=== PATIENT | female | born 2000 | race Caucasian/White ===

== ENCOUNTER 2020-08-16 08:53 | Outpatient (REF) | payer MEDICAID, SELFPAY ==
--- NOTE | ~2020-08-16 | CT_ITS ---
EXAMINATION: CT HEAD WITHOUT CONTRAST CLINICAL INFORMATION: Cystic lesion right frontoparietal lobe COMPARISON: CT brain 07/04/2019 TECHNIQUE: Contiguous axial imaging was performed from the skull base to vertex without intravenous administration of contrast. This CT examination was performed using dose optimization techniques as appropriate, variously including the following: *Automated exposure control *Adjustment of mA and/or kV according to patient size (this includes techniques or standardized protocols for targeted exams where dose is matched to indication/reason for exam; i.e. extremities or head) *Use of iterative reconstruction technique DLP: 769 mGy-cm FINDINGS: Again visualized is a right extra-axial frontal convexity CSF fluid collection, findings suggestive of extra-axial arachnoid cyst. It is stable compared to previous exam 07/04/2019 there is no mass or mass effect seen. No acute intra-axial or extra-axial bleed, acute infarction or midline shift. The lateral ventricles are symmetrical in size and configuration without enlargement. The [place] to white matter differentiation is maintained normal. Bone windows reveal no calvarial abnormality. Bilateral paranasal sinuses and mastoid air cells are well-aerated. The osseous structures and soft tissues are normal. CT/CT head/brain wo con IMPRESSION: No acute intracranial process seen. Right frontal extra-axial arachnoid cyst is stable.
== END 2020-08-16 08:54 | disposition home or self-care (01) ==
LOC: HO.CT 08:53
PROVIDERS: Visit Provider Neurological Surgery
DX: G31.89 Other specified degenerative diseases of nervous system (principal)
CPT/HCPCS: 70450

== ENCOUNTER 2020-09-10 13:03 | Outpatient (REF) | payer MEDICAID, SELFPAY ==
--- NOTE | ~2020-09-10 | MR_ITS ---
EXAMINATION: MRI OF THE BRAIN WITHOUT CONTRAST CLINICAL INFORMATION: Optic neuritis. COMPARISON: CT scan of the head 08/16/2020. MRI scan of the brain and orbits 01/10/2019.. TECHNIQUE: MRI of the brain was obtained using routine sequences without contrast. FINDINGS: No diffusion abnormalities are identified to suggest an acute or subacute infarct. No mass effect or midline shift is seen. The ventricles are normal in size. The study redemonstrates the arachnoid cyst in the right frontal region, which measures 6.6 x 2.7 cm axially. Allowing for differences in slice selection, the cyst is stable in size. There is some mass effect on the adjacent brain parenchyma, but the parenchyma has normal signal. No new extra-axial fluid collections are demonstrated. Brain parenchymal signal is normal. The brainstem and cerebellum are normal. No pathologic magnetic susceptibility artifact is identified on the gradient refocused acquisition. The craniovertebral junction, marrow signal, and midline structures are normal. The major intracranial flow-voids at the level of the [place] are preserved. The dural venous sinus flow-voids are maintained. The mastoid air cells and paranasal sinuses are well-aerated. MR/MR head/brain wo con IMPRESSION: 1. There are no acute bleeds or infarcts. No masses are demonstrated. Brain parenchymal signal appears normal. 2. The study redemonstrates an arachnoid cyst over the right frontal lobe, which appears stable in size.
== END 2020-09-10 13:04 | disposition home or self-care (01) ==
LOC: HO.MRI 13:03
PROVIDERS: PCP Family Medicine; Visit Provider Psychiatry & Neurology Neurology
DX: H46.9 Unspecified optic neuritis (principal)
CPT/HCPCS: 70551

== ENCOUNTER 2020-10-18 15:55 | Emergency (ER) | payer SELFPAY ==
[2020-10-18 16:03] VITALS: BP 114/84; PULSE 87; RESP 16; TEMP 36.9; O2SAT 99; BMI 28.3
--- NOTE | 2020-10-18 17:55 | ED_ITS ---
HPI - General Adult General Chief complaint: General Medical <JAIME Partida - Last Filed: 10/18/20 19:18> Stated complaint: vag infection <JAIME Partida - Last Filed: 10/18/20 19:18> Time Seen by Provider: 10/18/20 17:55 <JAIME Partida - Last Filed: 10/18/20 19:18> Source: patient <JAIME Partida - Last Filed: 10/18/20 19:18> Mode of arrival: ambulatory <JAIME Partida - Last Filed: 10/18/20 19:18> Limitations: no limitations <JAIME Paritda - Last Filed: 10/18/20 19:18> History of Present Illness HPI narrative: Patient is here today complaining of vaginal discharge, burning and itching. Patient reports that she had unprotected sex 1 week ago. Patient reports that it was with the same partner. Patient denies previous pregnancies. Patient denies abdominal pain, discomfort, pelvic pain. Last menstrual period 2 weeks ago. <JAIME Partida - Last Filed: 10/18/20 19:18> Related Data Allergies/adverse reactions: Allergies Allergy/AdvReac Type Severity Reaction Status Date / Time No Known Allergies Allergy Unverified 11/10/19 17:25 <JAIME Partida - Last Filed: 10/18/20 19:18> Review of Systems Review of Systems: Constitutional : No Weight loss, No Fever, No Chills, No Night Sweats, No Fatigue, No Malaise ENT/Mouth : No Hearing loss, No Ear Pain, No Nasal Congestion, No Sinus Pain, No Hoarseness, No sore throat, No Rhinorrhea, No Swallowing Difficulty Eyes: No Eye Pain, No Swelling, No Redness, No Foreign Body, No Discharge, No Vision Changes Cardiovascular : No Chest Pain, No SOB, No Dyspnea on Exertion, No Orthopnea, No Edema, No Palpitations Respiratory : No Cough, No Sputum, No Wheezing, No Smoke Exposure, No Dyspnea Gastrointestinal : No Nausea, No Vomiting, No Diarrhea, No Constipation, No abdominal Pain, No Hematochezia, No Melena Genitourinary : no irregular bleeding, No Dysuria, No Urinary Frequency, No Hematuria, No Urinary Incontinence, No Urgency, No Flank Pain, No Urinary Flow Changes, No Hesitancy, vaginal burning and discharge Musculoskeletal : No joint pain, No Myalgias, No Joint Swelling Skin : No Skin Lesions, No rash Neuro : No Weakness, No Numbness, No Paresthesias, No Loss of Consciousness, No Dizziness, No Headache Psych : No Anxiety/Panic, No Depression, No SI/HI/AH/VH, No Social Issues, Heme/Lymph: No Bruising, No Bleeding,No Lymphadenopathy Endocrine : No Polyuria, No Polydipsia, No Temperature Intolerance <PALOMA PartidaP-BC - Last Filed: 10/18/20 19:18> Yes all other systems are reviewed and are negative <PALOMA PartidaP-BC - Last Filed: 10/18/20 19:18> PMFSH Social History Social History: Social History Advance Directives: No Advance Directives Information Provided: No <PALOMA PartidaP-BC - Last Filed: 10/18/20 19:18> Physical Exam Vital Signs: Vital Signs: Last Vital Signs Temp 98.5 F 10/18/20 16:03 Pulse 87 10/18/20 16:03 Resp 16 10/18/20 16:03 BP 114/84 10/18/20 16:03 Pulse Ox 99 10/18/20 16:03 Body Mass Index 28.3 <PALOMA PartidaP-BC - Last Filed: 10/18/20 19:18> Vital Signs: Last Vital Signs Temp 98.5 F 10/18/20 16:03 Pulse 87 10/18/20 16:03 Resp 16 10/18/20 16:03 BP 114/84 10/18/20 16:03 Pulse Ox 99 10/18/20 16:03 Body Mass Index 28.3 <Chyna Garcia PA-C - Last Filed: 10/18/20 19:40> Const: General: healthy appearing, no acute distress and well developed <BALAJI Partida-BC - Last Filed: 10/18/20 19:18> Nutritional Appearance: well nourished <PALOMA PartidaP-BC - Last Filed: 10/18/20 19:18> Orientation/consciousness: patient oriented x3 <PALOMA PartidaP-BC - Last Filed: 10/18/20 19:18> Neck: Neck: Yes normal visual inspection, Yes full ROM and Yes trachea midline <PALOMA PartidaP-BC - Last Filed: 10/18/20 19:18> Thyroid: Thyroid normal <PALOMA PartidaP-BC - Last Filed: 10/18/20 19:18> Resp: Auscultation: clear to auscultation bilaterally <PALOMA PartidaP-BC - Last Filed: 10/18/20 19:18> Cardio: Rate: regular rate <PALOMA PartidaP-BC - Last Filed: 10/18/20 19:18> Rhythm: regular rhythm <PALOMA PartidaP-BC - Last Filed: 10/18/20 19:18> GI: Inspection: Yes normal to inspection and No distended <PALOMA PartidaP- - Last Filed: 10/18/20 19:18> Palpation (GI): Soft to palpation, not firm, nontender and No hepatosplenomegaly present <PALOMA PartidaP-BC - Last Filed: 10/18/20 19:18> Auscultation: normal bowel sounds <PALOMA PartidaP-BC - Last Filed: 10/18/20 19:18> : External Female Exam: normal external appearance <PALOMA PartidaP- BC - Last Filed: 10/18/20 19:18> Speculum Exam - Vagina: normal appearance of the vagina <PALOMA PartidaP-BC - Last Filed: 10/18/20 19:18> Speculum Exam - Cervix: normal appearance of the cervix <PALOMA PartidaP-BC - Last Filed: 10/18/20 19:18> Bimanual exam- vagina & uterus: normal bimanual exam <BALAJI Partida-BC - Last Filed: 10/18/20 19:18> Skin: General skin exam: elasticity normal, turgor normal and dry skin <Kathya Aponte [facility]- - Last Filed: 10/18/20 19:18> Neuro: General: patient oriented x3 <Kathya Aponte TRANSMISSIONS SYSTEMS OPERATOR- - Last Filed: 10/18/20 19:18> Course Course Course Narrative: 19-year-old female here today for complaining of vaginal pain, itching and drainage. Patient reports that she had unprotected sex last week. It was with the same partner. Patient denies any previous pregnancies. Last menstrual period 2 weeks ago. Vaginal exam normal, normal cervix, no motion tenderness, denies pelvic floor pain. Yellow discharge. Trichomonas, chlamydia and gonorrhea samples will be sent. Urine for micro and sent. Will medicate patient with Flagyl and Cipro. If urine is negative for we will order doxycycline. Discussed with patient the importance of avoiding sexual contact. <Kathya Pattersonchiquita [facility]- - Last Filed: 10/18/20 19:18> Reevaluation(s) Reevaluation #1: Awaiting urine test to treat her for chlamydia. Report given to Marisela EDMONDS <Kathya Pattersonchiquita [facility]- - Last Filed: 10/18/20 19:18> Reevaluation #2: Urine test negative, will prescribe doxycycline for STI prophylaxis. <Chyna Garcia PA-C - Last Filed: 10/18/20 19:40> Time: 19:40 <Chyna Garcia PA-C - Last Filed: 10/18/20 19:40> Medical Decision Making Lab Data Labs: Lab Results 10/18/20 10/18/20 Range/Units 19:21 19:21 Urine Color YELLOW Urine Appearance CLEAR Urine pH 6.5 (5.0-8.0) Ur Specific [place] 1.020 (1.005-1.025) Urine Protein NEG (NEG-TRACE) MG/DL Urine Glucose (UA) NEG (NEG) MG/DL Urine Ketones NEG (NEG) MG/DL Urine Blood TRACE (NEG) Urine Nitrite NEG (NEG) Ur Leukocyte Esterase NEG (NEG) Urine RBC 1-4 (0) /HPF Urine WBC 0-2 (0-4) /HPF Ur Squamous Epith Cells 2+ /LPF Urine Bacteria NONE /LPF Urine Test NEGATIVE (NEGATIVE) <Kathya Aponte TRANSMISSIONS SYSTEMS OPERATOR-BC - Last Filed: 10/18/20 19:18> Lab Results 10/18/20 10/18/20 Range/Units 19:21 19:21 Urine Color YELLOW Urine Appearance CLEAR Urine pH 6.5 (5.0-8.0) Ur Specific [place] 1.020 (1.005-1.025) Urine Protein NEG (NEG-TRACE) MG/DL Urine Glucose (UA) NEG (NEG) MG/DL Urine Ketones NEG (NEG) MG/DL Urine Blood TRACE (NEG) Urine Nitrite NEG (NEG) Ur Leukocyte Esterase NEG (NEG) Urine RBC 1-4 (0) /HPF Urine WBC 0-2 (0-4) /HPF Ur Squamous Epith Cells 2+ /LPF Urine Bacteria NONE /LPF Urine Test NEGATIVE (NEGATIVE) <Chyna Garcia PA-C - Last Filed: 10/18/20 19:40> Discharge Plan Discharge Clinical Impression: STI (sexually transmitted infection) <Kathya Aponte TRANSMISSIONS SYSTEMS OPERATOR-BC - Last Filed: 10/18/20 19:18> Patient Disposition: Home, Self-Care <Kathya Aponte TRANSMISSIONS SYSTEMS OPERATOR-BC - Last Filed: 10/18/20 19:18> Instructions: Sexually Transmitted Diseases (ED), Safe Sex Practices for Adolescents ( ED) <Kathya Aponte TRANSMISSIONS SYSTEMS OPERATOR-BC - Last Filed: 10/18/20 19:18> Additional Instructions: You were seen here today for <Kathya Aponte TRANSMISSIONS SYSTEMS OPERATOR-BC - Last Filed: 10/18/20 19:18>
[2020-10-18 19:29] LABS: Glucose Urine UA NEG (NEG); Leukocyte Esterase Urine NEG (NEG); Nitrite Urine NEG (NEG); PH 6.5 (5.0-8.0); UACC Culture Trigger NO; Urine Blood TRACE (NEG); Urine Ketones NEG (NEG); Urine Protein NEG (NEG-TRACE)
[2020-10-18 19:30] LABS: UPreg QC Valid YES; Urine Pregnancy NEGATIVE (NEGATIVE)
[2020-10-18 19:31] LABS: Appearance Urine CLEAR; Color Urine YELLOW
[2020-10-18 19:34] LABS: Squamous Epithelial Cell Urine 2+ /LPF; WBC Urine 0-2 /HPF (0-4)
[2020-10-18] MEDS: metroNIDAZOLE 500 MG TABLET 1000 MG PO (19:37)
[2020-10-18] MEDS: cefTRIAXone sodium 500 MG, Lidocaine HCl 1 % MPF 1 ML IM (19:37)
[2020-10-19 04:23] LABS: CT PCR NOT DETECTED (Not Detect.); NG PCR NOT DETECTED (Not Detect.)
== END 2020-10-18 19:50 | disposition home or self-care (01) ==
PROVIDERS: Nurse Practitioner Family; Emergency Provider Emergency Medicine; PCP Family Medicine
DX: N89.8 Other specified noninflammatory disorders of vagina (principal); Z11.3 Encounter for screening for infections with a predominantly sexual mode of transmission
CPT/HCPCS: 81001; 81025; 87491; 87591; 96372; 99283; 99284; J0696